=== PATIENT | male | born 1975 | race Caucasian/White ===

== ENCOUNTER 2018-07-29 17:41 | Emergency (ER) | payer SELFPAY ==
--- NOTE | 2018-07-29 18:12 | EKG REPORT ---
SEVERITY:- NORMAL ECG - SINUS RHYTHM : Confirmed by: Tirso Bustillo MD 29-Jul-2018 18:12:14
[2018-07-29] MEDS ORDERED: RINGERS SOLUTION,LACTATED 1,000 ML IV ONE (18:24)
[2018-07-29] MEDS ORDERED: KETOROLAC TROMETHAMINE INJ/PF 30 MG/1 ML SDV IV ONE (18:24)
--- NOTE | 2018-07-29 18:25 | ER Document Report ---
ED Medical Screen (RME) - General Chief Complaint: Flu Symptoms Stated Complaint: BODY PAIN Time Seen by Provider: 07/29/18 18:22 Notes: 42 years old male presents today with 2-day history of general body aches and pain whole torso is aching as well as lower back pain associated with nasal congestion sore throat. Feverish feeling. 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 Normal urine color. Examination is benign TRAVEL OUTSIDE OF THE [place] IN LAST 30 DAYS: No - Related Data Allergies/Adverse Reactions: No Known Allergies Allergy (Unverified 07/29/18 17:44) Past Medical History - Social History Chew tobacco use (# tins/day): No Frequency of alcohol use: None Drug Abuse: None Renal/ Medical History: Denies: Hx Peritoneal Dialysis Physical Exam - Vital signs Vitals: Temp Pulse Resp BP Pulse Ox 99.4 F 93 18 151/71 H 98 07/29/18 17:59 07/29/18 17:59 07/29/18 17:59 07/29/18 17:59 07/29/18 17:59 Course - Vital Signs Vital signs: Temp Pulse Resp BP Pulse Ox 99.4 F 93 18 151/71 H 98 07/29/18 17:59 07/29/18 17:59 07/29/18 17:59 07/29/18 17:59 07/29/18 17:59
--- NOTE | 2018-07-29 19:04 | RADIOLOGY REPORT (SQ) ---
EXAM DESCRIPTION: KUB/ABDOMEN (SINGLE VIEW) COMPLETED DATE/TIME: 07/29/2018 6:54 pm REASON FOR STUDY: Back pain COMPARISON: None. NUMBER OF VIEWS: One view. TECHNIQUE: Supine radiographic image of the abdomen acquired. LIMITATIONS: None. FINDINGS: BOWEL GAS PATTERN: Normal bowel gas pattern. No dilated loops. CALCIFICATIONS: No suspicious calcifications. SOFT TISSUES: No gross mass or suggestion of organomegaly. HARDWARE: None in the abdomen. BONES: No acute fracture. No worrisome bone lesions. OTHER: No other significant finding. IMPRESSION: NO RADIOGRAPHIC EVIDENCE FOR ACUTE ABDOMINAL DISEASE. TECHNICAL DOCUMENTATION: JOB ID: [id number] [employer]- All Rights Reserved Reading location - IP/workstation name: [email or web address]
[2018-07-29 19:12] LABS: ABSOLUTE BASOPHILS # (AUTO) 0.1 10^3/uL (0.0-0.2); ABSOLUTE LYMPHOCYTES (AUTO) 1.2 10^3/uL (0.5-4.7); ABSOLUTE MONOCYTES (AUTO) 1.2 10^3/uL (0.1-1.4); ABSOLUTE NEUT (AUTO) 7.6 10^3/uL (1.7-8.2); BASOPHILS % (AUTO) 0.7 % (0-2); EOSINOPHILS % (AUTO) 0.1 % (0-6); HEMATOCRIT 40.1 % (37.9-51.0); HEMOGLOBIN 14.3 g/dL (13.5-17.0); MEAN CORPUSCULAR HEMOGLOBIN 32.7 pg (27.0-33.4); MEAN CORPUSCULAR HGB CONC 35.7 g/dL (32.0-36.0); MEAN CORPUSCULAR VOLUME 92 fl (80-97); MONOCYTES % (AUTO) 12.3 % (3-13); PLATELET COUNT 217 10^3/uL (150-450); RED BLOOD COUNT 4.38 10^6/uL (4.35-5.55); RED CELL DISTRIBUTION WIDTH 11.8 % (11.5-14.0); SEGMENTED NEUTROPHILS % (AUTO) 74.9 % (42-78); TOTAL CELLS COUNTED % (AUTO) 100 %; WHITE BLOOD COUNT 10.1 10^3/uL (4.0-10.5)
--- NOTE | 2018-07-29 19:15 | ER Document Report ---
ED General - General Chief Complaint: Flu Symptoms Stated Complaint: BODY PAIN Time Seen by Provider: 07/29/18 18:22 Mode of Arrival: Ambulatory Information source: Patient Notes: This is a 42-year-old man with a history of migraines in the remote past who presents to the emergency room with 1 week history of headaches, back pain, neck ache, diffuse myalgias along with some lower abdominal discomfort. Patient denies fever. He denies significant photophobia. He denies rash. He states he came into the emergency room because of the symptoms persisting. TRAVEL OUTSIDE OF THE [place] IN LAST 30 DAYS: No - HPI Onset: Last week Onset/Duration: Gradual Quality of pain: Dull Severity: Moderate Pain Level: 2 Associated symptoms: denies: Nonproductive cough, Productive cough, Diarrhea, Fever, Vomiting, Shortness of breath Exacerbated by: Movement Relieved by: Remaining still Similar symptoms previously: Yes Recently seen / treated by doctor: No - Related Data Allergies/Adverse Reactions: No Known Allergies Allergy (Unverified 07/29/18 17:44) Past Medical History - General Information source: Patient - Social History Smoking Status: Former Smoker Cigarette use (# per day): No Chew tobacco use (# tins/day): No Frequency of alcohol use: None Drug Abuse: None Lives with: Family Family History: None Patient has suicidal ideation: No Patient has homicidal ideation: No - Past Medical History Cardiac Medical History: Reports: None Pulmonary Medical History: Reports: None EENT Medical History: Reports: None Neurological Medical History: Reports: Hx Migraine Endocrine Medical History: Reports: None Renal/ Medical History: Reports: None. Denies: Hx Peritoneal Dialysis Malignancy Medical History: Reports None GI Medical History: Reports: None Musculoskeletal Medical History: Reports None Skin Medical History: Reports None Psychiatric Medical History: Reports: None Traumatic Medical History: Reports: None Infectious Medical History: Reports: None Past Surgical History: Reports: Other - Foot abscess incision and drainage Review of Systems - Review of Systems Constitutional: denies: Chills, Fever EENT: No symptoms reported Cardiovascular: No symptoms reported Respiratory: No symptoms reported Gastrointestinal: Abdominal pain - Epigastric discomfort. denies: Vomiting Genitourinary: No symptoms reported Male Genitourinary: No symptoms reported Musculoskeletal: See HPI Skin: No symptoms reported Hematologic/Lymphatic: No symptoms reported Neurological/Psychological: No symptoms reported Physical Exam - Vital signs Vitals: Temp Pulse Resp BP Pulse Ox 99.4 F 93 18 151/71 H 98 07/29/18 17:59 07/29/18 17:59 07/29/18 17:59 07/29/18 17:59 07/29/18 17:59 Notes: Physical exam: GENERAL: Patient is alert and oriented x3, conversant, no acute distress. He is tolerating the light in the room without any difficulty. HEAD: Atraumatic, normocephalic. EYES: Pupils equal round and reactive to light, extraocular movements intact, sclera anicteric, conjunctiva are normal. ENT: TMs normal, nares patent, oropharynx clear without exudates. Moist mucous membranes. NECK: Normal range of motion, supple without obvious mass. He does have some tenderness in the left submental area without obvious adenopathy. LUNGS: Breath sounds clear to auscultation bilaterally and equal. No wheezes rales or rhonchi. HEART: Regular rate and rhythm without murmurs, rubs or gallops. ABDOMEN: Soft, normoactive bowel sounds. Mild epigastric tenderness to palpation. No guarding, no rebound. No masses appreciated. EXTREMITIES: Normal range of motion, no pitting or edema. No clubbing or cyanosis. NEUROLOGICAL: Cranial nerves II through XII grossly intact. Normal speech, moving all extremities. He has no photophobia. There is no obvious meningismus. His Brudzinski's and Kernig's are negative and his neck is quite supple. PSYCH: Normal mood, normal affect. SKIN: Warm, Dry, normal turgor, no rashes or lesions noted. Course - Re-evaluation Re-evalutation: 07/29/18 21:48 Patient was given IV Toradol, Reglan, IV Benadryl and IV fluids. He was observed several hours. Patient is feeling much better and states that his headache is resolved. He most likely has a viral syndrome. I do not see any other notes of bacterial meningitis. His neck is quite supple at this time. I did go over with him that if his headache worsens or his neck pain worsens or gets stiff, he will need to come back for reevaluation and may require a spinal tap in that case. He states he feels better and understands. 07/30/18 00:08 - Vital Signs Vital signs: Temp Pulse Resp BP Pulse Ox 98.5 F 76 18 110/67 97 07/29/18 21:56 07/29/18 21:56 07/29/18 21:56 07/29/18 21:56 07/29/18 21:56 - Laboratory Result Diagrams: 07/29/18 19:00 07/29/18 19:00 Laboratory results interpreted by me: 07/29/18 07/29/18 19:00 19:00 Lymphocytes % 12.0 L Urine Ketones 20 H Urine Urobilinogen 2.0 H - Diagnostic Test Radiology reviewed: Image reviewed, Reports reviewed - CT of the head shows no bleed Discharge - Discharge Clinical Impression: Viral syndrome, Migraine headache Condition: Stable Disposition: HOME, SELF-CARE Instructions: Oral Narcotic Medication ([facility]) Additional Instructions: As we discussed, your labs and x-rays looked okay. The flu studies were negative today. It is possible that she have a viral syndrome which is making your migraine worse. I want you to rest for the next few days, take off from work. Drink plenty of fluids. Take ibuprofen as needed. Take the oxycodone as needed for pain. Return to the emergency room for worsening headache, worsening light bothering the eyes, worsening neck stiffness: If these are progressing, you will need to be reevaluated for possible spinal tap. We want you to follow-up with a primary care doctor: I left the number for 1 who is affiliated with the hospital on the chart. The pain medicine you're taking prescribed as a narcotic. There are several important things you should know about this medicine: 1. Taking narcotics for too long can lead to physical and mental dependence. Take this medicine only if really needed and in the lowest quantity to achieve pain relief. 2. Do not drink alcohol while on this medicine. Alcohol interacts with narcotics and the combination can be dangerous. 3. Do not drive or operate machinery while on this medicine. 4. Narcotics do cause constipation, so drink plenty of fluids and daily stool softeners. Prescriptions: Oxycodone HCl 5 mg PO Q6HP PRN #14 capsule PRN Reason: Promethazine HCl [Phenergan 25 mg Tablet] 25 mg PO Q6H PRN #15 tablet PRN Reason: For Nausea/Vomiting Forms: Return to Work Referrals: DULCE BOWERS MD [ACTIVE STAFF] - Follow up as needed (This is the number of a good primary care doctor: He is affiliated with this [facility].)
[2018-07-29] MEDS ORDERED: DIPHENHYDRAMINE HCL 50 MG/ML VIAL IV ONE (19:18)
[2018-07-29] MEDS ORDERED: METOCLOPRAMIDE HCL INJ/PF 10 MG/2 ML SDV IV ONE (19:18)
[2018-07-29 19:20] LABS: APPEARANCE,URINE SLIGHTLY-CLOUDY; BILIRUBIN,URINE NEGATIVE (NEGATIVE); COLOR,URINE YELLOW; GLUCOSE, URINE NEGATIVE (NEGATIVE); KETONES,URINE 20 mg/dL (NEGATIVE); LEUKOCYTE ESTERASE,URINE NEGATIVE (NEGATIVE); NITRITE,URINE NEGATIVE (NEGATIVE); PROTEIN,URINE NEGATIVE (NEGATIVE); URINE SPECIFIC GRAVITY 1.023
[2018-07-29 19:29] LABS: ALANINE AMINOTRANSFERASE 24 U/L (21-72); ALBUMIN 4.3 g/dL (3.5-5.0); ALKALINE PHOSPHATASE 63 U/L (38-126); ANION GAP 11 (5-19); ASPARTATE AMINO TRANSFERASE 20 U/L (17-59); BILIRUBIN,DIRECT 0.2 mg/dL (0.0-0.4); BLOOD UREA NITROGEN 9 mg/dL (7-20); CARBON DIOXIDE 27 mmol/L (22-30); CHLORIDE 101 mmol/L (98-107); CREATINE KINASE 62 U/L (55-170); GLUCOSE 106 mg/dL (75-110); POTASSIUM 3.8 mmol/L (3.6-5.0); SODIUM 139.2 mmol/L (137-145); TOTAL PROTEIN 6.9 g/dL (6.3-8.2)
[2018-07-29 20:09] LABS: A TYPE INFLUENZA AG NEGATIVE (NEGATIVE); B INFLUENZA AG NEGATIVE (NEGATIVE)
--- NOTE | 2018-07-29 20:59 | RADIOLOGY REPORT (SQ) ---
EXAM DESCRIPTION: CT HEAD WITHOUT COMPLETED DATE/TIME: 07/29/2018 8:46 pm REASON FOR STUDY: lassiter COMPARISON: None. TECHNIQUE: Axial images acquired through the brain without intravenous contrast. Images reviewed wi th bone, brain and subdural windows. Additional sagittal and coronal reconstructions were generated. Images stored on PACS. All CT scanners at this facility use dose modulation, iterative reconstruction, and/or weight based d osing when appropriate to reduce radiation dose to as low as reasonably achievable (ALARA). [facility]: Dose Right [facility]: CareDose [facility]: Dose Right [facility]: Teradose 4D [facility]: Jaxtr RADIATION DOSE: CT Rad equipment meets quality standard of care and radiation dose reduction techniq ues were employed. CTDIvol: 53.2 mGy. DLP: 991 mGy-cm. mGy. LIMITATIONS: None. FINDINGS: VENTRICLES: Normal size and contour. CEREBRUM: No masses. No hemorrhage. No midline shift. No evidence for acute infarction. Normal gra y/white matter differentiation. No areas of low density in the white matter. CEREBELLUM: No masses. No hemorrhage. No alteration of density. No evidence for acute infarction. EXTRAAXIAL SPACES: No fluid collections. No masses. ORBITS AND GLOBE: No intra- or extraconal masses. Normal contour of globe without masses. CALVARIUM: No fracture. PARANASAL SINUSES: No fluid or mucosal thickening. SOFT TISSUES: No mass or hematoma. OTHER: No other significant finding. IMPRESSION: NORMAL BRAIN CT WITHOUT CONTRAST. EVIDENCE OF ACUTE STROKE: NO. COMMENT: Quality ID # [id number]: Final reports with documentation of one or more dose reduction techniques (e.g., Automated exposure control, adjustment of the mA and/or kV according to patient size, use of iterative reconstruction technique) TECHNICAL DOCUMENTATION: JOB ID: [id number] [employer]- All Rights Reserved Reading location - IP/workstation name: [email or web address]
[2018-07-29 22:01] VITALS: BP 110/67
== END 2018-07-29 22:01 | disposition home or self-care (01) ==
LOC: ER 17:41
DX: G43.909 Migraine, unspecified, not intractable, without status migrainosus (principal); B34.9 Viral infection, unspecified; R10.13 Epigastric pain; M54.9 Dorsalgia, unspecified; M54.2 Cervicalgia; M79.10 Myalgia, unspecified site; Z87.891 Personal history of nicotine dependence
CPT/HCPCS: 93005; 99284; 96361; 96374; 96375; 36415; 87070; 87880; 82550; 83690; 85025; 80053; 81001; 84481; 87804; 74018; 70450; 93010; J1200; J1885; J2765; J7120